=== PATIENT | female | born 1975 | race Caucasian/White ===

== ENCOUNTER 2019-12-04 07:32 | Outpatient (CLI) | payer OTHER, SELFPAY ==
--- NOTE | ~2019-12-04 | US_ITS ---
EXAMINATION: US right upper quadrant DATE: 12/04/2019 08:01 INDICATION: Right upper quadrant pain TECHNIQUE: Multiple grayscale and Doppler ultrasound images of the abdomen were obtained. COMPARISON: None available FINDINGS: The head and and body of the pancreas are normal. The pancreatic tail is obscured by bowel gas. The liver demonstrates increased echogenicity, heterogenous echotexture, and decreased through t ransmission. No surface nodularity. Normal hepatopetal flow in the main portal vein. There is a small amount of sludge in the gallbladder. No pericholecystic fluid or gallbladder wall thickening are satinder ntified. The normal common bile duct measures 3 mm. There was no sonographic Laughlin sign. IMPRESSION: 1. Diffuse hepatic steatosis. 2. Small amount of gallbladder sludge. Reviewed, dictated and finalized at location A.
== END 2019-12-04 07:33 | disposition home or self-care (01) ==
LOC: CHSIMG 07:35
PROVIDERS: PCP Internal Medicine; Visit Provider Internal Medicine
DX: R94.5 Abnormal results of liver function studies (principal)
CPT/HCPCS: 76705

== ENCOUNTER 2020-02-01 07:32 | Outpatient (RCR) | payer OTHER, SELFPAY ==
--- NOTE | 2020-02-01 07:48 | PTOPEVAL ---
Thank you for referring Paradise Gifford to [facility].? The patient is scheduled to be seen for therapy? __2__x/week for 8 visits. Please review, sign, date and return this plan of care SELENA. I agree with and certify that the following plan of care is medically necessary. Referring Physician Date Admitting Provider: Attending Provider: PHYSICIAN NOT ON STAFF Referring Provider: *PT Outpatient Evaluation Start: 02/01/20 06:58 Freq: Status: Active Protocol: Document 02/01/20 06:59 RACHEL (Rec: 02/01/20 07:44 RACHEL [email or web address]) Therapy Assessment Status Assessment Status Assessment Status Evaluation Evaluation Information Problem Diagnosis rotator cuff syndrome right shoulder Onset 11/14/19 Subjective Information Pt. reports that around the Query Text:As Reported By Patient/ beginning of November she did a Family lot of house cleaning and developed right shoulder pain. She reports that she has improved since then, but states that reaching overhead to reach in cabinets is painful. She notes that she does get pain with sleeping on her right shoulder. She describes pain in the posterior shoulder and radiating into the described brachial region. She reports that her goal is to decrease her shoulder pain. Diagnostic Tests X-Rays For This Problem Yes Prior Level of Function Activity Level (Last 3 Months) Occupation keyboarding Hand Dominance Right Activity of Daily Living Ability Independent Indoor/Home Mobility Independent Community Mobility Independent Stairs Ability Independent Functional Cognition (Planning, Shopping Independent , Taking Medications) Cooking Yes Cleaning Yes Laundry Yes Shopping Yes Driving Yes Pain Assessment Pain Scale Pain Scale Used Numeric (1 - 10) Self Report Pain Assessment Right Shoulder(s) Reported Pain Level 0 Pain Description Aching Pain Frequency Intermittent Lowest Pain Intensity 0 Greatest Pain Intensity 2 Pain Score Pain Score 0: Self Report Upper Extremity Range of Motion
== END 2020-02-26 09:15 | disposition home or self-care (01) ==
LOC: CHSPT 07:32
PROVIDERS: PCP Internal Medicine
DX: M75.101 Unspecified rotator cuff tear or rupture of right shoulder, not specified as traumatic (principal)
CPT/HCPCS: 97014; 97110; 97140; 97161; G0283

== ENCOUNTER 2020-12-23 20:23 | Emergency (ER) | payer BC, SELFPAY ==
--- NOTE | ~2020-12-23 | XR_ITS ---
XR foot RT 2V 12/23/2020 21:11 INDICATION: Right foot pain after stepping on nail. PROCEDURE: 2 views right foot COMPARISON: No prior studies for comparison. FINDINGS: Fracture, dislocation or subluxation is not identified. The soft tissues appear within norm al limits. No foreign bodies are identified. IMPRESSION: 1: NO ACUTE BONE OR JOINT ABNORMALITY IDENTIFIED. Reviewed, dictated and finalized at location A.
[2020-12-23 20:53] VITALS: BP 142/88; PULSE 88; RESP 18; TEMP 36.6; O2SAT 95
--- NOTE | 2020-12-23 21:30 | ED.WOUNDLAC ---
HPI - Wound/Laceration General Chief Complaint: Wound/Laceration Stated Complaint: stepped on nail in R foot Time Seen by Provider: 12/23/20 20:55 Source: patient and RN notes reviewed Mode of arrival: ambulatory Limitations: no limitations History of Present Illness HPI narrative: puncture wound to sole of right foot Onset (ago): hour(s) (1) Extremity Location: Left: foot Place: home Patient tetanus UTD: No Context: accidental Associated symptoms: none Related Data Allergies Allergy/AdvReac Type Severity Reaction Status Date / Time cefaclor [From Ceclor] AdvReac Hives Verified 12/23/20 21:05 Review of Systems Review of Systems: All systems reviewed & are unremarkable except as noted in HPI and below Musculoskeletal: Comments: puncture wound to right foot sole. [facility] Past Medical History Medical History (Updated 12/23/20 @ 21:39 by Giancarlo Mauricio MD) Medical history non-contributory Exam Const: General: no acute distress Nutritional Appearance: well nourished Orientation/consciousness: patient oriented x3 HENMT: Head: normal to inspection Ears: external ears normal and TM's normal bilaterally General nose exam: Normal external nose present and Normal nares present Mouth: Yes moist mucous membranes Teeth and gingiva: dentition normal Eyes: Conjunctivae: conjunctivae normal Pupils: Equal, round and reactive pupils present EOM: EOMs intact bilaterally Neck: Neck: normal visual inspection and no lymphadenopathy Chest: Chest palpation & inspection: normal inspection of the chest Resp: Effort & Inspection: normal respiratory effort Auscultation: clear to auscultation bilaterally Cardio: Rate: regular rate Rhythm: regular rhythm GI: GI Palp: Yes Soft to palpation Percussion: Yes normal to percussion Auscultation: normal bowel sounds Back/Spine/Pelvis: Back: no CVA tenderness Skin: General skin exam: normal color Rashes: no rashes Neuro: General: patient oriented x3 and moves all extremities Extrem: Other: Puncture wound of distal 1/3 of right foot sole. no acute bleeding, swelling, deformity, redness or tenderness of distal right foot. Psych: Appearance: grossly normal and well kempt Mental Status: mental status grossly normal Affect: normal affect Attitude: cooperative Thought content: Yes Normal thought content present Course Course Emergency Course: Pt was stable and less pain-ful in the ED. Reevaluation(s) Date: 12/23/20 Time: 21:31 Vital Signs Vital signs: Vital Signs Temperature 36.6 C 12/23/20 20:53 Pulse Rate 88 12/23/20 20:53 Respiratory Rate 18 12/23/20 20:53 Blood Pressure 142/88 H 12/23/20 20:53 Pulse Oximetry 95 12/23/20 20:53 Temperature 36.6 C 12/23/20 20:53 Pulse Rate 88 12/23/20 20:53 Respiratory Rate 18 12/23/20 20:53 Blood Pressure 142/88 H 12/23/20 20:53 Pulse Oximetry 95 12/23/20 20:53 MDM - Wound/Laceration Differential Diagnosis Differential diagnosis: Likely other (puncture wound) Medical Records Attestation: I reviewed the patient's medical records. Imaging Data Radiologist's impression: no acute abnormality. Critical Care Time Critical Care Time Critical Care Time: No Total Critical Care Time: 0 Discharge Plan Discharge Clinical Impression: Puncture wound Patient Disposition: Home, Self-Care Condition: Stable Instructions: Antibiotic Form, Puncture Wound (ED) Additional Instructions: Home. May RTC prn. PMD in 1-2 days. Rx below. RICE. Off work x 2 days. Prescriptions: New levofloxacin 750 mg tablet 750 mg PO DAILY Qty: 10 RF: 0 ibuprofen 800 mg tablet 800 mg PO TID Qty: 20 RF: 0 omeprazole magnesium [Prilosec OTC] 20 mg tablet,delayed release (DR/EC) 20 mg PO BID Qty: 20 RF: 0 Follow-up/Referrals: Edson Olivier MD [Primary Care Provider] - Time of Disposition: 21:35
[2020-12-23] MEDS: TETANUS,DIPHTHERIA,AC PERTUSSIS ADULT 0.5 ML (ADACEL) IM (21:41)
[2020-12-23] MEDS: IBUPROFEN 400 MG TABLET 800 MG PO (21:42)
--- NOTE | 2020-12-23 21:43 | PC.NURSE ---
wound cleaned with betadine upon arrival, vaseline drsg applied.
[2020-12-23 21:44] VITALS: BP 120/90; PULSE 70; RESP 18; TEMP 36.6; O2SAT 100
== END 2020-12-23 21:51 | disposition home or self-care (01) ==
PROVIDERS: Emergency Provider Emergency Medicine; PCP Internal Medicine
DX: S91.331A Puncture wound without foreign body, right foot, initial encounter (principal); W45.0XXA Nail entering through skin, initial encounter
CPT/HCPCS: 73140; 73620; 90471; 90715; 99283; A9270

== ENCOUNTER 2021-10-18 15:01 | Outpatient (CLI) | payer BC, SELFPAY ==
--- NOTE | ~2021-10-18 | CT_ITS ---
EXAMINATION: CT sinus wo con DATE: 10/18/2021 15:24 INDICATION: Chronic sinusitis. TECHNIQUE: Computed tomography (CT) of the paranasal sinuses was performed without intravenous contra st. The dose-length product was 327.26 mGy-cm. COMPARISON: None FINDINGS: There is mild-moderate mucosal thickening of all paranasal sinuses. Leftward nasal septal d eviation. The ostiomeatal units are patent. No significant mucoperiosteal reaction. Mastoids are pneu matized. No air-fluid levels. IMPRESSION: 1. Mild-moderate pansinusitis. Reviewed, dictated and finalized at location A.
== END 2021-10-18 15:02 | disposition home or self-care (01) ==
LOC: CHSIMG 15:02
PROVIDERS: PCP Internal Medicine; Visit Provider Internal Medicine
DX: J32.9 Chronic sinusitis, unspecified (principal)
CPT/HCPCS: 70486

== ENCOUNTER 2021-12-12 12:24 | Outpatient (CLI) | payer BC, SELFPAY ==
--- NOTE | ~2021-12-12 | XR_ITS ---
XR chest 2V DATE: 12/12/2021 12:47 INDICATION: Fever, chills, body aches. Covid exposure. TECHNIQUE: 2 views COMPARISON: 08/15/2015 2 view chest FINDINGS: There is patchy right upper lobe infiltrate. The lungs are otherwise clear. No pleural effu peri or pulmonary vascular congestion or pneumothorax. Normal heart size. No hilar or mediastinal enlargement. IMPRESSION: Patchy right upper lobe infiltrate, likely due to pneumonia Reviewed, dictated and finalized at location B.
[2021-12-12 13:03] LABS: Basophils Absolute Auto 0.01 K/mm3 (0.00-0.10); Basophils Percent Auto 0.1 % (0.0-1.0); Eosinophils Absolute Auto 0.66 K/mm3 (0.02-0.50); Eosinophils Percent Auto 7.8 % (1.0-6.0); Hematocrit 43.7 % (35.0-49.0); Hemoglobin 14.4 g/dL (12.0-15.0); Immature Granulocyte Absolute 0.03 K/mm3 (0.00-0.00); Immature Granulocyte Percent A 0.4 % (0.0-0.0); Lymphocytes Absolute Auto 1.87 K/mm3 (1.10-4.50); Lymphocytes Percent Auto 22.2 % (18.0-42.0); Mean Corpuscular Hemoglobin 29.6 pg (27.0-31.0); Mean Corpuscular Volume 89.7 fL (78.0-102.0); Mean Platelet Volume 9.3 fl (9.2-11.8); Monocytes Absolute Auto 0.78 K/mm3 (0.10-0.90); Monocytes Percent Auto 9.3 % (2.0-11.0); Neutrophils Absolute Auto 5.1 K/mm3 (1.7-7.2); Neutrophils Percent Auto 60.2 % (50.0-70.0); Platelet Count Result 385 K/mm3 (150-420); Red Blood Count 4.87 M/mm3 (4.20-5.40); Red Cell Distribution Width 13.1 % (11.6-14.4); White Blood Count 8.4 K/mm3 (4.8-10.8)
[2021-12-12 13:25] LABS: Alanine Aminotransferase 42 U/L (14-59); Albumin Level 3.5 g/dL (3.4-5.0); Alkaline Phosphatase 88 U/L (46-116); Anion Gap 9 mmol/L (8-16); Aspartate Amino Transferase 14 U/L (15-37); Bilirubin,Total 0.5 mg/dL (0.00-1.00); Blood Urea Nitrogen 7 mg/dL (7-18); Calcium 8.9 mg/dL (8.5-10.1); Carbon Dioxide 28 mmol/L (21-32); Chloride 99 mmol/L (98-108); Estimated Glomerular Filt Rate > 60; Glucose 100 mg/dL (70-99); Osmolality Calculated 280 mOsm/kg (285-295); Sodium 136 mmol/L (136-145); Total Protein 7.1 g/dL (6.4-8.2)
[2021-12-12 13:38] LABS: Influenza A QL RT-PCR Negative (Negative); Influenza B QL RT-PCR Negative (Negative); SARS-CoV-2 RNA PCR Negative (Negative)
== END 2021-12-12 12:25 | disposition home or self-care (01) ==
LOC: CHSIMG 12:29
PROVIDERS: PCP Internal Medicine; Visit Provider Nurse Practitioner Family
DX: R50.9 Fever, unspecified (principal); R52 Pain, unspecified; Z20.822 Contact with and (suspected) exposure to COVID-19
CPT/HCPCS: 36415; 71046; 80053; 85025; 87502; C9803; U0003; U0005

== ENCOUNTER 2021-12-28 17:22 | Outpatient (CLI) | payer BC, SELFPAY ==
--- NOTE | ~2021-12-28 | XR_ITS ---
EXAMINATION: XR chest 2V DATE: 12/28/2021 18:08 INDICATION: Cough. Congestion. TECHNIQUE: Frontal and lateral views of the chest were obtained. COMPARISON: Chest 2 views 12/12/2021 FINDINGS: The chest demonstrates clear lungs without pneumonia, pleural effusion, or pneumothorax. Th e heart size is normal. IMPRESSION: 1. No acute cardiopulmonary disease. Reviewed, dictated and finalized at location A.
[2021-12-28 17:46] LABS: Hematocrit 45.4 % (35.0-49.0); Hemoglobin 14.8 g/dL (12.0-15.0); Mean Corpuscular HGB Conc 32.6 g/dL (32.0-36.0); Mean Corpuscular Hemoglobin 29.5 pg (27.0-31.0); Mean Corpuscular Volume 90.6 fL (78.0-102.0); Mean Platelet Volume 9.3 fl (9.2-11.8); Platelet Count Result 464 K/mm3 (150-420); Red Blood Count 5.01 M/mm3 (4.20-5.40); Red Cell Distribution Width 13.3 % (11.6-14.4); White Blood Count 12.4 K/mm3 (4.8-10.8)
[2021-12-28 18:03] LABS: Alanine Aminotransferase 39 U/L (14-59); Albumin Level 3.6 g/dL (3.4-5.0); Alkaline Phosphatase 80 U/L (46-116); Anion Gap 7 mmol/L (8-16); Aspartate Amino Transferase 14 U/L (15-37); Bilirubin,Total 0.3 mg/dL (0.00-1.00); Blood Urea Nitrogen 10 mg/dL (7-18); Calcium 9.3 mg/dL (8.5-10.1); Carbon Dioxide 30 mmol/L (21-32); Chloride 100 mmol/L (98-108); Estimated Glomerular Filt Rate > 60; Glucose 100 mg/dL (70-99); Osmolality Calculated 283 mOsm/kg (285-295); Potassium 3.6 mmol/L (3.5-5.1); Sodium 137 mmol/L (136-145); Total Protein 6.7 g/dL (6.4-8.2)
== END 2021-12-28 17:23 | disposition home or self-care (01) ==
LOC: CHSLAB 17:28
PROVIDERS: PCP Internal Medicine; Visit Provider Internal Medicine
DX: R05.9 Cough, unspecified (principal)
CPT/HCPCS: 36415; 71046; 80053; 85027

== ENCOUNTER → 2022-01-08 15:25 | Outpatient (CLI) | payer BC, SELFPAY ==
--- NOTE | ~2022-01-08 | CT_ITS ---
EXAMINATION:CT diagnostic chest w con DATE: 01/08/2022 16:02 INDICATION: Pneumonia. TECHNIQUE: Computed tomography (CT) of the chest was performed with 75 mL Omnipaque 350 intravenous c ontrast. Automated exposure control and iterative reconstruction technique were employed. The dose-le ngth product (DLP) was 504.63 mGy-cm. COMPARISON: Chest 2 views 12/28/2021 FINDINGS: The lungs demonstrate mild dependent atelectasis. No bronchiectasis or honeycombing. No ple ural effusion. The heart size is normal. No pericardial effusion. There is diffuse hepatic steatosis. There is mild thoracic spondylosis. Thoracic dextroscoliosis is noted. IMPRESSION: 1. No evidence of pneumonia. 2. Diffuse hepatic steatosis. Reviewed, dictated and finalized at location A.
[2022-01-08 15:51] LABS: Estimated Glomerular Filt Rate > 60
== END ==
PROVIDERS: PCP Internal Medicine; Visit Provider Internal Medicine
DX: J18.9 Pneumonia, unspecified organism (principal); M41.9 Scoliosis, unspecified; K76.0 Fatty (change of) liver, not elsewhere classified
CPT/HCPCS: 71260; Q9967

== ENCOUNTER 2024-08-03 13:21 | Emergency (ER) | payer BC, SELFPAY ==
[2024-08-03 13:21] VITALS: TEMP 36.6
[2024-08-03 13:29] VITALS: BP 162/106; PULSE 86; RESP 18; TEMP 36.5; O2SAT 96
--- NOTE | 2024-08-03 14:21 | ED_ITS ---
HPI - Wound/Laceration General Chief Complaint: Wound/Laceration Stated Complaint: FINGER LAC Time Seen by Provider: 08/03/24 13:50 Source: patient Mode of arrival: ambulatory Limitations: no limitations History of Present Illness HPI narrative: Patient is a 49-year-old female with a significant past medical history that presents today for a laceration to her left 5th digit. There is a laceration to the left 5th digit of the PIP joint. Is a small laceration about 1.5 cm in length. It is not very Deep but so will require stitches. Onset (ago): hour(s) Location: other ( laceration to left 5th digit PIP joint) Extremity Location: Left: hand Place: home Patient tetanus UTD: Yes Context: accidental Associated symptoms: none Related Data Allergies Allergy/AdvReac Type Severity Reaction Status Date / Time cefaclor (From [facility]) AdvReac Hives Verified 08/03/24 13:22 Review of Systems Review of Systems: All systems reviewed & are unremarkable except as noted in HPI and below Constitutional: Constitutional: Reports as per HPI Eyes: Eyes: Reports no additional eye complaints ENT: Reports system reviewed and no additional complaints, except as documented Cardiovascular: Cardiovascular: Reports no additional cardiovascular complaints Respiratory: Respiratory: Reports no additional respiratory complaints Gastrointestinal: Gastrointestinal: Reports no additional gastrointestinal complaints Genitourinary: Genitourinary: Reports no additional female genitourinary complaints Musculoskeletal: Musculoskeletal: Reports as per HPI and Reports arthralgias ( 1.5 cm laceration to left 5th digit PIP joint) Integumentary/Breasts: Skin/Breast: Reports system reviewed and no additional complaints, except as docu Neurologic: Reports system reviewed and no additional complaints, except as documented Psychiatric: Psychiatric: Reports no additional psychiatric complaints Endocrine: Endocrine: Reports no additional endocrine complaints Hematologic/Lymphatic: Hematologic/Lymphatic: Reports no additional hematologic/lymphatic complaints Allergic/Immunologic: Allergic/Immunologic: Reports no additional allergic/immunologic complaints PMFSH Past Medical History Medical History Medical history non-contributory Exam Const: General: healthy appearing Nutritional Appearance: well nourished Orientation/consciousness: patient oriented x3 HENMT: Head: normal to inspection Ears: external ears normal Face/Nos e/Sinus: Normal external nose present Face and sinus: normal facial exam Mouth: Yes Normal oral and palatal mucosa present Eyes: Conjunctivae: conjunctivae normal Pupils: Equal, round and reactive pupils present EOM: EOMs intact bilaterally Neck: Neck: normal visual inspection Chest: Chest palpation & inspection: normal inspection of the chest Resp: Effort & Inspection: normal respiratory effort Auscultation: clear to auscultation bilaterally Cardio: Rate: regular rate Rhythm: regular rhythm GI: GI Palp: Yes Soft to palpation Back/Spine/Pelvis: Back: no CVA tenderness Skin: General skin exam: normal color Rashes: no rashes Wounds: wounds noted ( 1.5 cm laceration to left 5th digit PIP joint) Neuro: General: patient oriented x3 Cranial nerves: Yes Nystagmus not present Speech: normal speech Extrem: General: normal to inspection Psych: Mental Status: mental status grossly normal Affect: normal affect Attitude: cooperative Course Vital Signs Vital signs: Vital Signs Temperature 97.9 F 08/03/24 13:21 Temperature 97.7 F 08/03/24 13:29 Pulse Rate 86 08/03/24 13:29 Respiratory Rate 18 08/03/24 13:29 Blood Pressure 162/106 H 08/03/24 13:29 Pulse Oximetry 96 08/03/24 13:29 Oxygen Delivery Room Air 08/03/24 13:29 Procedures Laceration Laceration 1: Date: 08/03/24 Time: 14:27 Site: hand ( Left 5th digit PIP joint.) Side (If applicable): left Size (cm): 1.5 Description: linear Depth: simple, single layer Local Anesthetic: lidocaine 1% Amount of anesthesia used (mL): 5 Pre-repair: irrigated ====== Skin Level ====== Skin layer closed with: nylon Size (cm): 4-0 Number of sutures: 2 Technique: simple, interrupted ====== Subcutaneous Layer ====== ====== Muscle Layer ====== ====== Tendon Layer ====== MDM - Wound/Laceration MDM Narrative Medical decision making narrative: patient has a 1.5 cm laceration to the 5th digit the left hand PIP joint. This will require stitches. I cleaned the area thoroughly and soaked and iodine monitor. That was able to put 2 stitches and and this is in the procedure although. Differential Diagnosis Differential diagnosis: Likely laceration Medical Records Attestation: I reviewed the patient's medical records. Discharge Plan Discharge Clinical Impression: Laceration, Finger injury Patient Disposition: Home Condition: Stable Instructions: Care For Your Stitches (ED) Additional Instructions: return and 7-10 days to a hair ER, PCP, urgent care for stitch removal. Keep area clean and dry. Wound instructions were given to the patient. Patient Language: Mongolian Prescriptions: No Action levofloxacin 750 mg tablet 750 mg PO DAILY Qty: 10 0RF ibuprofen 800 mg tablet 800 mg PO TID Qty: 20 0RF omeprazole magnesium [Prilosec OTC] 20 mg tablet,delayed release (DR/EC) 20 mg PO BID Qty: 20 0RF Follow-up/Referrals: Edson Olivier MD [Primary Care Provider] - Time of Disposition: 14:29
[2024-08-03 14:39] VITALS: BP 145/82; PULSE 75; RESP 16; TEMP 36.6; O2SAT 99
--- OUTSIDE RECORDS SUMMARY | 2024-08-03 15:00 | XMS_ITS | Clinical Summary ---
Author Organization [facility] [address] Address [address] [place] [address] Care Team Providers Care [facility] Programmer Name Role Phone Edson Olivier MD Primary Care Provider + [phone] Benson Delgado MD Unavailable [phone] Allergies Active Allergy Reactions Criticality Noted Date Comments Cefaclor Hives Medium 11/08/2021 Medications losartan-hydroC HLOROthiazide (HYZAAR) 50-12.5 mg per tablet Take 1 tablet by mouth daily 2 Active cetirizine (ZyrTEC) 10 mg tablet Take 10 mg by mouth nightly Active albuterol 2.5 mg /3 mL (0.083 %) nebulizer solution as needed Active potassium chloride ER 10 mEq CR capsule 10 mEq daily 2 Active fluticasone propionate (FLOVENT HFA) 220 mcg/actuation inhaler Inhale 1 puff 2 (two) times a day Rinse mouth with water after use. Do not swallow. Active [id number] 600 mg calcium- 800 unit-50 mg tablet Take 1 tablet by mouth daily Active magnesium gluconate (MAGONATE) 500 mg (27 mg elemental) tabletIndicatio ns:hypomagnesem ia Take 500 mg by mouth daily Active turmeric root extract 500 mg capsule Take 500 mg by mouth daily Active levalbuterol (XOPENEX HFA) 45 mcg/actuation inhaler INHALE 2 PUFFS (90 MCG) BY INHALATION ROUTE EVERY 4-6 HOURS 2 Active HYDROcodone-beatrice taminophen (NORCO) 7.5-325 mg per tabletIndicatio ns:Pain Take 1 tablet by mouth every 6 (six) hours as needed for pain for up to 24 doses 24 tablet 2 Active Active Problems Problem Noted Date Diagnosed Date Hypertrophy of nasal turbinates 01/30/2022 Overview (01/30/2022): Added automatically from request for surgery [id number] Tinnitus of both ears 11/09/2021 Assessment & Plan (11/09/2021 8:26 PM CDT): We talked about the tinnitus. I think is related to the high-frequency sensorineural hearing loss that she has in both ears. I do not think she is a candidate for hearing aids. He basically reassured her. There is really not a whole lot that can be done for this. She understands. Nasal obstruction 11/08/2021 Assessment & Plan (11/09/2021 8:26 PM CDT): Is likely due to the deviated nasal septum and enlarged turbinates. I also think that she has mild chronic sinusitis which is contributing. Deviated nasal septum 11/08/2021 Assessment & Plan (12/26/2021 7:31 PM CDT): Again I think she would benefit from a septoplasty with bilateral inferior turbinectomy. She also would like to pursue this. She would like to breathe through her nose quite a bit better. I discussed the risk of a septoplasty with and without turbinectomy with the patient. There is a risk of continued nasal obstruction, bleeding, septal perforation, permanent anosmia. Also risk of inadequate correction which could result in continued nasal obstruction symptoms. She wants to pursue this. She will call to set that up. Assessment & Plan (11/09/2021 8:27 PM CDT): We talked about the deviated nasal septum. I told her there is really not a whole lot that can be done for that other than surgery to correct this. I discussed the risk of a septoplasty with and without turbinectomy with the patient. There is a risk of continued nasal obstruction, bleeding, septal perforation, permanent anosmia. Also risk of inadequate correction which could result in continued nasal obstruction symptoms. I am going to treat her for her sinusitis and the plan is to see her back in about 4 weeks to see how she is doing. If she has continued symptoms I may be recommending surgery at that time. She understands. Chronic pansinusitis 11/08/2021 Assessment & Plan (03/31/2022 2:00 PM CANDY COOKER HELPER): She is healing well. Packing was removed today and I removed old blood and debris from each side of the nose using suction. She noted that she could breathe quite a bit better. I am recommending that she avoid anything strenuous. Keep her head up as much as possible over the next couple of days. She can start blowing her nose and a couple of days. The plan is for a follow-up in 1 week. Assessment & Plan (12/26/2021 7:30 PM CDT): I am recommending surgery to address her sinus problems. I discussed the risk of sinus surgery including the risk of recurrent or persistent disease that may require further revision surgery. There is a risk of orbital injury and DISPATCHER [employer] POWER injury which could result in blindness or double vision or brain damage. These risks are quite low. Some risk of permanent anosmia. She indicated she wants good pursue this. She is going to go ahead and get her chest CT scan done 1st however and if everything seems to be okay she will call us set this up. Assessment & Plan (11/09/2021 8:28 PM CDT): She has mild disease but is significant and there is significant sinus obstruction with this. I reviewed this with her films. Has involvement of the ethmoid maxillary sinuses. May need to consider surgery for that also. She understands. I am going to treat her for 2 weeks with Augmentin. Also a steroid pack. Follow- up after that. Surgical History Surgery Date Site/Laterality Comments TONSILLECTOMY 04/15/1982 - 04/14/1983 N/A FINGER SURGERY 04/15/2004 - 04/14/2005 Left Left ring finger EYE SURGERY 04/15/2017 - 04/14/2018 cataracts SINUS SURGERY 03/26/2022 Bilateral ENDOSCOPIC BILATERAL MAXILLLARY ANTROSTOMY,BILATERAL TOTAL ETHMOIDECTOMY NASAL SEPTOPLASTY W/ TURBINOPLASTY 03/26/2022 Bilateral Medical History Medical History Date Comments Allergic rhinitis Asthma Glaucoma Hypertension GERD (gastroesophageal reflux disease) Sinusitis HL (hearing loss) Tinnitus Dizziness Covid 04/2021 Motion sickness Heart murmur no symptoms Cough Pneumonia 01/2022 Obesity Family History Medical History Relation Name Comments Gifford's esophagus Mother Thyroid disease Mother Relation Name Status Comments Mother Social History Tobacco Use Types Packs/Day Years Used Date Smoking Tobacco: Never Smokeless Tobacco: Never Tobacco Cessation:Counseling Given: Not Answered AUDIT-C Answer Date Recorded Q1: How often do you have a drink containing alcohol? Never 03/26/2022 Q2: How many drinks containi ng alcohol do you have on a typical day when you are drinking? Patient does not drink Q3: How often do you have si x or more drinks on one occasion? Never 03/26/2022 Comments No Sex and Gender Information Value Date Recorded Sex Assigned at Not on file Legal Sex Female 2:23 PM CDT Gender Identity Not on file Sexual Orientation Not on file Obstetrics History Last Filed Vital Signs Vital Sign Reading Time Taken Comments Blood Pressure 143/96 03/26/2022 2:05 PM CANDY COOKER HELPER Pulse 71 03/26/2022 2:05 PM CANDY COOKER HELPER Temperature 36.4 C (97.5 F) 03/26/2022 1:35 PM CANDY COOKER HELPER Respiratory Rate 18 03/27/2022 11:16 AM CANDY COOKER HELPER Oxygen Saturation 96% 03/26/2022 2:05 PM CANDY COOKER HELPER Inhaled Oxygen Concentration - - Weight 93.9 kg (207 lb) 03/27/2022 11:16 AM CANDY COOKER HELPER Height 157.5 cm (5' 2 ) 03/27/2022 11:16 AM CANDY COOKER HELPER Body Mass Index 37.86 03/27/2022 11:16 AM CANDY COOKER HELPER Plan of Treatment Health Maintenance Due Date Last Done Comments Breast Cancer Screening-Mammogram 1974 Cervical Cancer Screening 1974 Colon Cancer Screening-Colonoscopy 1974 Depression Screening 1974 Hepatitis C Screening 1974 Hepatitis B Screening 1992 Regular Well Visit/Exam 18-64 1992 Covid-19 Vaccine ( season) 2023, 08/17/2020 Influenza Vaccine (#1) 2023 Pneumococcal vaccine <65 (3 of 3 - PCV20 or PCV21) 2024 07/16/2017, 08/17/2016 Zoster Vaccine (1 of 2) 2024 DTaP/Tdap/Td Vaccine (3 - Td or Tdap) 12/23/203001/2021, 08/17/2016 Insurance [employer] O[employer] Advance Directives For more information, please contact: [phone] * Full Code (Latest Code Status on File) Date Activated Date Inactivated Comments 03/26/2022 2:00 PM 03/26/2022 6:48 PM Care Teams [facility] Programmer Relationship Specialty Start Date End Date Edson Olivier MD [address] [place] [address] PCP - General Internal Medicine 10/25/21 Benson Delgado [place] [address] Consulting Physician Otolaryngology 03/26/22
--- OUTSIDE RECORDS SUMMARY | 2024-08-03 15:00 | XMS_ITS | Clinical Summary ---
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 Gender Identity Not on file Sexual Orientation Not on file Plan of Treatment Health Maintenance Due Date Last Done Comments Colorectal Cancer Screening Colonoscopy (10 Years) 1974 Annual Physical 1977 Hepatitis C 1992 Hepatitis B Vaccines (1 of 3 - 19+ 3-dose series) 1993 COVID-19 Vaccine (2023-2 5 season) 2023 09/07/2020, 08/17/2020 Pneumococcal Vaccine: 50+ Years (3 of 3 - PCV20 or PCV21) 2024 07/16/2017, 08/17/2016 Zoster Vaccines (1 of 2) 2024 Mammogram Screening 10/12/2024 10/12/2022, 06/28/2021 Cervical Cancer Screening Pa p Smear (Age 30 to 64) Every 3 Years 09/14/2025 09/14/2022 Cervical Cancer Screening Pa p with HPV Testing (Age 30 to 64) Every 5 Years 09/15/2027 09/14/2022 Cervical Cancer Screening wi th HPV 09/15/2027 DTaP, Tdap and Td Vaccines ( 3 - Td or Tdap) 12/23/2030 12/23/2020, 08/17/2016 Meningococcal B Vaccine Aged Out No l onger eligible based on patient's age to complete this topic Meningococcal Vaccine Aged Out No jose angel eva eligible based on patient's age to complete this topic RSV Immunizations Under 20 Months Aged Out No longer eligible b ased on patient's age to complete this topic Procedures Procedure Name Priority Date/Time Associated Diagnosis Comments MG SCREENING W NOA SCHUYLER DIGI Routine 10/12/2022 2:25 PM CDT Visit for screening mammogram HUMAN PAPILLOMAVIRUS, HIGH-RISK TYPES Routine 09/14/2022 12:00 PM CDT CYTOPATH CERV/VAG THIN LAYER Routine 09/14/2022 7:48 AM CDT Screening for cervical cancer from Last 3 Months or Most Recently Relevant to Health Maintenance Results * MG SCREENING W NOA SCHUYLER DIGI (10/12/2022 2:25 PM CDT) Anatomical Region Laterality Modality Breast Bilateral Mammography 10/15/2022 1:32 PM CDT Narrative 10/15/2022 1:32 PM CDT EXAMINATION: BILATERAL SCREENING MAMMOGRAPHY Exam Date: 10/12/2022 1:58 PM CLINICAL INDICATION: 47 years of age female routine screening. COMPARISON: Dating back to 11/18/2013 TECHNIQUE: Digital CC & MLO views. Tomosynthesis imaging acquisition Study read with the assistance of a computer-aided detection system. TISSUE DENSITY: There are scattered areas of fibroglandular density. FINDINGS: No suspicious grouping of microcalcifications, architectural distortion, or new dominant suspicious nodule 3 dimensionally demonstrated in either breast. IMPRESSION: No interval features to suggest malignancy. In the absence of clinical symptoms, return for annual screening mammogram due in 1 year. RECOMMENDATION: Routine Screening, Bilateral in 1 year ASSESSMENT: ACR BI-RADS 1 - NEGATIVE Ordered By: GEOVANI E JOSIAH Interpreted By: Devin Augustin MD, 10/15/2022 1:32 PM Geovani Hoffmann MD MAMMO Final Result * HUMAN PAPILLOMAVIRUS, HIGH-RISK TYPES (09/14/2022 12:00 PM CDT) SPEC DESCRIPTION CERVICAL/END OCERVICAL 09/18/2022 7:58 AM CDT [facility] HPV DNA HIGH RISK NEGATIVE NEGATIVE 09/21/2022 9:52 PM CDT [facility] Comment:SEE CYTOLOGY REPORT 09/14/2022 12:0 0 PM CDT Geovani Hoffmann MD PATHOLOGY/CYTOLOGY ORDERABLES Final Result [facility] [address] [place] [address], * Cytopath Cerv/Vag Thin Layer (09/14/2022 7:48 AM CDT) THIN PREP PAP [facility] [address] [place] [address] Department of Pathology Pathology Report CERVICAL/VAGINAL PAP SMEAR REPORT Name: PARADISE BISWAS Age: 3 1975 (Age: 47) Location: [facility] Sex: F Collected Date: 09/14/2022 Hospital #: [id number] Date Received: 09/18/2022 Date Reported: 09/24/2022 Provider: GEOVANI HERNANDES MD INTERPRETATION CERVICAL/ENDOCERVI ZACH: SATISFACTORY FOR EVALUATION. ENDOCERVICAL/TRANS FORMATION ZONE COMPONENT PRESENT. NEGATIVE FOR INTRAEPITHELIAL LESION OR MALIGNANCY. NEGATIVE FOR HIGH RISK HPV. The FDA approved Aptima HPV assay is an in vitro nucleic acid amplification test for the qualitative detection of E6/E7 viral messenger RNA (mRNA) from 14 high-risk types of human papillomavirus (HPV) in cervical specimens. The high-risk HPV types detected by the assay include: 16,18,31,33,35,39, 45,51,52,56,58,59, 66, and 68. Electronically Signed Out By SHEILA Lyle (ASCP) CLINICAL HISTORY SCREENING PAP TEST ThinPrep Pap Test with screening HR HPV testing requested, with reflex HPV 16/18 genotyping on negative cytology, positive HR HPV Date of Last Menstrual Period: UNKNOWN Menstrual Status: Regular SPECIMEN SUBMITTED CERVICAL/ENDOCERVI ZACH Specimen Received:1 Thin Prep Vial, Image Assisted Pap (SMD) Please note: The Pap smear is not a diagnostic test. It is a screening test. Negative results on combined screening (Pap test and HPV-DNA) have a high negative predictive value (99.1-100 percent) for cervical cancer. The pap test is not effective in detecting cervical adenocarcinoma. [facility] 09/14/2022 7:48 AM CDT 09/18/2022 7:48 AM CDT Comment:CERVICAL/ENDOCERVICA L Geovani Hoffmann MD PATHOLOGY/CYTOLOGY ORDERABLES Final Result [facility] [address] [place] [address], from Last 3 Months or Most Recently Relevant to Health Maintenance Insurance [facility] Care Teams Manager Rn Case Relationship Specialty Start Date End Date Edson Hernandes MD [address] [place] [address] PCP - General INTERNAL MEDICINE 06/23/21
--- OUTSIDE RECORDS SUMMARY | 2024-08-03 15:00 | XMS_ITS | Referral Summary ---
Author Organization [facility] [address] [employer] Address [address] [place] [address] Care Team Providers Care Paint Process Engineer Name Role Phone Edson Olivier MD Primary Care Provider + [phone] Benson Delgado MD Unavailable [phone] Allergies Active Allergy Reactions Criticality Noted Date [...] water after use. Do not swallow. Active [id number]-zi jd-ipg-qpmv-bor 600 mg calcium- 800 unit-50 mg tablet [...] (01/30/2022): Added automatically from request for surgery [id number] Tinnitus of both ears 11/09/2021 Assessment & [...] 11/08/2021 Assessment & Plan (03/31/2022 2:00 PM PLANOGRAPH OPERATOR): She is healing well. Packing was removed [...] is a risk of orbital injury and IT SOLUTIONS ARCHITECT injury which could result in blindness or [...] a steroid pack. Follow- up after that. Social History Tobacco Use Types Packs/Day Years [...] on file Sexual Orientation Not on file Last Filed Vital Signs Vital Sign Reading Time Taken Comments Blood Pressure 143/96 03/26/2022 2:05 PM PLANOGRAPH OPERATOR Pulse 71 03/26/2022 2:05 PM PLANOGRAPH OPERATOR Temperature 36.4 C (97.5 F) 03/26/2022 1:35 PM PLANOGRAPH OPERATOR Respiratory Rate 18 03/27/2022 11:16 AM PLANOGRAPH OPERATOR Oxygen Saturation 96% 03/26/2022 2:05 PM PLANOGRAPH OPERATOR Inhaled Oxygen Concentration - - Weight 93.9 kg (207 lb) 03/27/2022 11:16 AM PLANOGRAPH OPERATOR Height 157.5 cm (5' 2 ) 03/27/2022 11:16 AM PLANOGRAPH OPERATOR Body Mass Index 37.86 03/27/2022 11:16 AM PLANOGRAPH OPERATOR Plan of Treatment Not on file Insurance [employer] Advance Directives For more information, please contact: [phone] * Full Code (Latest Code Status on File) Date Activated Date Inactivated Comments 03/26/2022 2:00 PM 03/26/2022 6:48 PM Care Teams Paint Process Engineer Relationship Specialty Start Date End Date Edson Olivier MD [address] [place] [address] PCP - General Internal Medicine 10/25/21 Benson Delgado MD [address] [place] [address] Consulting Physician Otolaryngology 03/26/22
--- OUTSIDE RECORDS SUMMARY | 2024-08-03 15:50 | XMS_ITS | Clinical Summary ---
Author Organization [facility] [address] [employer] Address [address] [place] [address] Care Team Providers Care Vehicle Controls Engineer Name Role Phone Edson Olivier MD Primary Care Provider + [phone] Benson Delgado MD Unavailable [phone] Allergies Active Allergy Reactions Criticality Noted Date [...] water after use. Do not swallow. Active [id number]-zi tx-idc-icou-bor 600 mg calcium- 800 unit-50 mg tablet [...] (01/30/2022): Added automatically from request for surgery [id number] Tinnitus of both ears 11/09/2021 Assessment & [...] 11/08/2021 Assessment & Plan (03/31/2022 2:00 PM CLINICAL RECRUITER): She is healing well. Packing was removed [...] is a risk of orbital injury and DRIVER GUIDE injury which could result in blindness or [...] Comments Blood Pressure 143/96 03/26/2022 2:05 PM CLINICAL RECRUITER Pulse 71 03/26/2022 2:05 PM CLINICAL RECRUITER Temperature 36.4 C (97.5 F) 03/26/2022 1:35 PM CLINICAL RECRUITER Respiratory Rate 18 03/27/2022 11:16 AM CLINICAL RECRUITER Oxygen Saturation 96% 03/26/2022 2:05 PM CLINICAL RECRUITER Inhaled Oxygen Concentration - - Weight 93.9 kg (207 lb) 03/27/2022 11:16 AM CLINICAL RECRUITER Height 157.5 cm (5' 2 ) 03/27/2022 11:16 AM CLINICAL RECRUITER Body Mass Index 37.86 03/27/2022 11:16 AM CLINICAL RECRUITER Plan of Treatment Health Maintenance Due Date [...] - Td or Tdap) 12/23/203001/2021, 08/17/2016 Insurance [employer] Advance Directives For more information, please contact: [phone] * Full Code (Latest Code Status on File) Date Activated Date Inactivated Comments 03/26/2022 2:00 PM 03/26/2022 6:48 PM Care Teams Vehicle Controls Engineer Relationship Specialty Start Date End Date Edson Olivier MD [address] [place] [address] PCP - General Internal Medicine 10/25/21 Benson [place] [address] Consulting Physician Otolaryngology 03/26/22
--- OUTSIDE RECORDS SUMMARY | 2024-08-03 15:50 | XMS_ITS | Referral Summary ---
Author Organization [facility] [address] Address [address] [place] [address] Care Team Providers Care Communication Equipment Mechanic Name Role Phone Edson Olivier MD Primary Care Provider + [phone] Benson Delgado MD Unavailable [phone] Allergies Active Allergy Reactions Criticality Noted Date [...] water after use. Do not swallow. Active [id number]-[id number]-zi lb-ovu-nkne-bor 600 mg calcium- 800 unit-50 mg tablet [...] (01/30/2022): Added automatically from request for surgery [id number] Tinnitus of both ears 11/09/2021 Assessment & [...] 11/08/2021 Assessment & Plan (03/31/2022 2:00 PM MARKETING STRATEGIST): She is healing well. Packing was removed [...] is a risk of orbital injury and BOAT JOINER HELPER injury which could result in blindness or [...] Comments Blood Pressure 143/96 03/26/2022 2:05 PM MARKETING STRATEGIST Pulse 71 03/26/2022 2:05 PM MARKETING STRATEGIST Temperature 36.4 C (97.5 F) 03/26/2022 1:35 PM MARKETING STRATEGIST Respiratory Rate 18 03/27/2022 11:16 AM MARKETING STRATEGIST Oxygen Saturation 96% 03/26/2022 2:05 PM MARKETING STRATEGIST Inhaled Oxygen Concentration - - Weight 93.9 kg (207 lb) 03/27/2022 11:16 AM MARKETING STRATEGIST Height 157.5 cm (5' 2 ) 03/27/2022 11:16 AM MARKETING STRATEGIST Body Mass Index 37.86 03/27/2022 11:16 AM MARKETING STRATEGIST Plan of Treatment Not on file Insurance [employer] Advance Directives For more information, please contact: [phone] * Full Code (Latest Code Status on File) Date Activated Date Inactivated Comments 03/26/2022 2:00 PM 03/26/2022 6:48 PM Care Teams Communication Equipment Mechanic Relationship Specialty Start Date End Date Edson Olivier MD [address] [place] [address] PCP - General Internal Medicine 10/25/21 Benson Delgado MD [address] [place] [address] Consulting Physician Otolaryngology 03/26/22
--- OUTSIDE RECORDS SUMMARY | 2024-08-03 15:50 | XMS_ITS | Clinical Summary ---
Author Organization [facility] Address [address] [place] [address] Care Team Providers Care Manager Licensing Name Role Phone Edson Hernandes MD Primary Care Provider [phone] Family History Medical History Relation Comments Breast Cancer Maternal Aunt Breast Cancer Paternal Grandmother Relation Status Comments Maternal Aunt Paternal Grandmother Social History Tobacco Use Types Packs/Day Years Used Date Smoking Tobacco: Never Assessed Comments Unknown Sex and Gender Information Value Date Recorded Sex Assigned at Not on file Legal Sex Female 6:36 PM DIRECTOR MUSIC Gender Identity Not on file Sexual Orientation [...] DESCRIPTION CERVICAL/END OCERVICAL 09/18/2022 7:58 AM CDT [facility] HPV DNA HIGH RISK NEGATIVE NEGATIVE 09/21/2022 9:52 PM CDT [facility] Comment:SEE CYTOLOGY REPORT 09/14/2022 12:0 0 PM CDT Geovani Hoffmann MD PATHOLOGY/CYTOLOGY ORDERABLES Final Result [facility] [address] [place] [address], * Cytopath Cerv/Vag Thin Layer (09/14/2022 7:48 AM CDT) THIN PREP PAP [facility] [address] [place] [address] Department of Pathology Pathology Report CERVICAL/VAGINAL PAP SMEAR REPORT Name: PARADISE BISWAS Age: 3 1975 (Age: 47) Location: [facility] Sex: F Collected Date: 09/14/2022 Hospital #: [id number] Date Received: 09/18/2022 Date Reported: 09/24/2022 Provider: [...] is not effective in detecting cervical adenocarcinoma. [facility] 09/14/2022 7:48 AM CDT 09/18/2022 7:48 AM CDT Comment:CERVICAL/ENDOCERVICA L Geovani Hoffmann MD PATHOLOGY/CYTOLOGY ORDERABLES Final Result [facility] [address] [place] [address], from Last 3 Months or Most Recently Relevant to Health Maintenance Insurance [employer] Care Teams Manager Licensing Relationship Specialty Start Date End Date Edson Hernandes MD [address] [place] [address] PCP - General INTERNAL MEDICINE 06/23/21
== END 2024-08-03 14:39 | disposition home or self-care (01) ==
PROVIDERS: Emergency Provider Family Medicine; PCP Internal Medicine
DX: S61.217A Laceration without foreign body of left little finger without damage to nail, initial encounter (principal); W45.8XXA Other foreign body or object entering through skin, initial encounter
CPT/HCPCS: 12001; 99282

== ENCOUNTER 2025-01-25 14:28 | Outpatient (CLI) | payer BC, SELFPAY ==
--- NOTE | ~2025-01-25 | XR_ITS ---
EXAMINATION: XR foot RT min 3V, 01/25/2025 14:45 CDT HISTORY: R Knee Pain, R Foot Pain COMPARISON: No comparisons available. Findings: No acute fracture or malalignment. No significant degenerative changes. Soft tissues unremarkable. Impression: No acute fracture or malalignment. Reviewed, dictated and finalized at location P. Impression: No acute fracture or malalignment.
--- NOTE | ~2025-01-25 | XR_ITS ---
EXAMINATION: XR knee RT 3V, 01/25/2025 14:45 CDT HISTORY: R Knee Pain COMPARISON: No comparisons available. Findings: No acute fracture or malalignment. No significant degenerative changes. Soft tissues unremarkable. Impression: No acute fracture or malalignment. Reviewed, dictated and finalized at location P. Impression: No acute fracture or malalignment.
--- OUTSIDE RECORDS SUMMARY | 2025-01-25 15:34 | XMS_ITS | Clinical Summary ---
Author Organization [facility] [address] Address [address] [place] [address] Care Team Providers Care Systems Analyst Developer Name Role Phone Edson Olivier MD Primary Care Provider [phone] Benson Delgado MD Unavailable [phone] Allergies Active Allergy Reactions Criticality Noted Date [...] water after use. Do not swallow. Active [id number]-[id number]-zi iy-odl-ptwq-bor 600 mg calcium- 800 unit-50 mg tablet [...] (01/30/2022): Added automatically from request for surgery [id number] Tinnitus of both ears 11/09/2021 Assessment & [...] 11/08/2021 Assessment & Plan (03/31/2022 2:00 PM TOWN PLANNER): She is healing well. Packing was removed [...] is a risk of orbital injury and CLINICAL SECRETARY injury which could result in blindness or [...] Comments Blood Pressure 143/96 03/26/2022 2:05 PM TOWN PLANNER Pulse 71 03/26/2022 2:05 PM TOWN PLANNER Temperature 36.4 C (97.5 F) 03/26/2022 1:35 PM TOWN PLANNER Respiratory Rate 18 03/27/2022 11:16 AM TOWN PLANNER Oxygen Saturation 96% 03/26/2022 2:05 PM TOWN PLANNER Inhaled Oxygen Concentration - - Weight 93.9 kg (207 lb) 03/27/2022 11:16 AM TOWN PLANNER Height 157.5 cm (5' 2) 03/27/2022 11:16 AM TOWN PLANNER Body Mass Index 37.86 03/27/2022 11:16 AM TOWN PLANNER Plan of Treatment Health Maintenance Due Date Last Done Comments Breast Cancer Screening-Mammogram 1974 Cervical Cancer Screening 1974 Colon Cancer Screening-Colonoscopy 1974 Depression Screening 1974 Hepatitis C Screening 1974 Hepatitis B Screening 1992 Regular Well Visit/Exam 18-64 1992 Pneumococcal vaccine <65 (3 of 3 - PCV20 or PCV21) 2024 07/16/2017, 08/17/2016 Zoster Vaccine (1 of 2) 2024 Covid-19 Vaccine (3 - 2024- season) 2024, 08/17/2020 Influenza Vaccine (#1) 2024 DTaP/Tdap/Td Vaccine (3 - Td or Tdap) 12/23/203001/2021, 08/17/2016 Insurance [employer] Advance Directives For more information, please contact: [phone] * Full Code (Latest Code Status on File) Date Activated Date Inactivated Comments 03/26/2022 2:00 PM 03/26/2022 6:48 PM Care Teams Systems Analyst Developer Relationship Specialty Start Date End Date Edson Olivier MD [address] [place] [address] PCP - General Internal Medicine 10/25/21 [place] [address] [place] [address] Consulting Physician Otolaryngology 03/26/22
--- OUTSIDE RECORDS SUMMARY | 2025-01-25 15:34 | XMS_ITS | Clinical Summary ---
Author Organization [facility] Address [address] [place] [address] Care Team Providers Care Pneumatic Drum Sander Name Role Phone Edson Hernandes MD Primary Care Provider [phone] Family History Medical History Relation Comments Breast Cancer Maternal Aunt Breast Cancer Paternal Grandmother Relation Status Comments Maternal Aunt Paternal Grandmother Social History Tobacco Use Types Packs/Day Years Used Date Smoking Tobacco: Never Assessed Comments Unknown Sex and Gender Information Value Date Recorded Sex Assigned at Not on file Legal Sex Female 6:36 PM NUCLEAR MEDICINE TECHNOLOGIST Gender Identity Not on file Sexual Orientation Not on file Plan of Treatment Health Maintenance Due Date Last Done Comments Colorectal Cancer Screening Colonoscopy (10 Years) 1974 Annual Physical 1977 Hepatitis C 1992 Hepatitis B Vaccines (1 of 3 - 19+ 3-dose series) 1993 Pneumococcal Vaccine: 50+ Years (3 of 3 - PCV20 or PCV21) 2024 07/16/2017, 08/17/2016 Zoster Vaccines (1 of 2) 2024 Mammogram Screening 10/12/2024 10/12/2022, 06/28/2021 COVID-19 Vaccine (2024-2 6 season) 2024 09/07/2020, 08/17/2020 Influenza Adult (#1) 2025 Cervical Cancer Screening Pa p Smear (Age [...] BI-RADS 1 - NEGATIVE Ordered By: GEOVANI HOFFMANN Interpreted By: Devin Augustin MD, 10/15/2022 1:32 PM Geovani Hoffmann MD MAMMO Final Result * HUMAN PAPILLOMAVIRUS, HIGH-RISK TYPES (09/14/2022 12:00 PM CDT) SPEC DESCRIPTION CERVICAL/END OCERVICAL 09/18/2022 7:58 AM CDT [facility] HPV DNA HIGH RISK NEGATIVE NEGATIVE 09/21/2022 9:52 PM CDT [facility] Comment:SEE CYTOLOGY REPORT 09/14/2022 12:0 0 PM CDT Geovani Hoffmann MD PATHOLOGY/CYTOLOGY ORDERABLES Final Result [facility] [address] [place] [address], * Cytopath Cerv/Vag Thin Layer (09/14/2022 7:48 AM CDT) THIN PREP PAP [facility] [address] [place] [address] Department of Pathology Pathology Report CERVICAL/VAGINAL PAP SMEAR REPORT Name: PARADISE BISWAS Age: 3 1975 (Age: 47) Location: [facility] Sex: F Collected Date: 09/14/2022 [facility] #: [id number] Date Received: 09/18/2022 Date Reported: 09/24/2022 Provider: [...] is not effective in detecting cervical adenocarcinoma. [facility] 09/14/2022 7:48 AM CDT 09/18/2022 7:48 AM CDT Comment:CERVICAL/ENDOCERVICA L Geovani Hoffmann MD PATHOLOGY/CYTOLOGY ORDERABLES Final Result [facility] [address] [place] [address], from Last 3 Months or Most Recently Relevant to Health Maintenance Insurance [facility] Care Teams Pneumatic Drum Sander Relationship Specialty Start Date End Date Edson Hernandes MD [address] [place] [address] PCP - General INTERNAL MEDICINE 06/23/21
== END 2025-01-25 14:29 | disposition home or self-care (01) ==
PROVIDERS: PCP Internal Medicine; Visit Provider Internal Medicine
DX: M25.561 Pain in right knee (principal); M79.671 Pain in right foot
CPT/HCPCS: 73562; 73630

== ENCOUNTER 2025-04-03 07:46 | Outpatient (CLI) | payer BC, SELFPAY ==
--- NOTE | ~2025-04-03 | MR_ITS ---
EXAMINATION: MR knee RT wo/w con DATE: 04/03/2025 08:37 INDICATION: Right knee pain TECHNIQUE: Magnetic resonance imaging (MRI) of the right knee was performed without and with 20 mL Multihance intravenous contrast. Sequences included coronal PD-weighted FSE, coronal PD-weighted FS FSE, sagittal T2-weighted FSE, sagittal PD-weighted FS FSE, axial PD weighted fat saturated FSE, axial T1- weighted FS FSE and postcontrast axial, sagittal and coronal T1-weighted FS FSE. COMPARISON: None. FINDINGS: Medial compartment: There is a radial tear near the posterior root of the medial meniscus. There is mild reactive marrow edema and enhancement post lateral aspect medial tibial plateau near the root of the medial meniscus and likely secondary to the meniscal tear. Partial-thickness chondral fissuring involving at least 50% of the cartilage thickness along the lateral margin of the anterior weightbearing medial femoral condyle. Lateral compartment: Lateral meniscus is normal. Articular cartilage is normal. Patellofemoral compartment: Deep chondral ulceration with mild underlying edema-like signal and enhancement at the junction of the cephalad two thirds of the patellar apical ridge. Shallow chondral surface irregularity along portions of the lateral patellar facet. Trochlear cartilage is normal. Ligaments and tendons: Anterior and posterior cruciate ligaments are normal. The medial collateral ligament and fibular collateral ligament complex are normal. Patellar tendon is normal. Mild tendinopathy at the distal quadriceps tendon without discrete tear. The visualized medial and lateral hamstring tendons as well as the iliotibial band are normal. Fluid: Small knee joint effusion at the suprapatellar pouch. No loose osteochondral bodies identified. Osseous/other: No fracture or pathologic marrow replacing process. IMPRESSION: 1. Radial meniscal tear near the posterior root of the medial meniscus. 2. 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 2. Likely reactive small right knee joint effusion. Reviewed, dictated and finalized at location A. [facility] IMPRESSION: 1. Radial meniscal tear near the posterior root of the medial meniscus. 2. Mild osteoarthritis in the medial compartment with moderate grade chondral m alacia along the anterior weightbearing medial femoral condyle and at the jha lofemoral compartment with small region of high-grade patellar chondromalacia. 2. Likely reactive small right knee joint effusion.
--- OUTSIDE RECORDS SUMMARY | 2025-04-03 07:50 | XMS_ITS | Clinical Summary ---
Author Organization [facility] Address [address] [place] [id number] Care Team Providers Care Translator Interpreter Name Role Phone Edson Hernandes MD Primary Care Provider [phone] Encounters Date Type Department Care Team Description 03/22/2025 6:46 AM SECURITIES UNDERWRITER - 03/22/2025 11:59 PM SECURITIES UNDERWRITER Hospital Encounter [facility] [address] [place] [address] Geovani Hoffmann MD Discharge Disposition: Home or Self Care (Routine Discharge) 03/22/2025 Travel from Last 3 Months Family History Medical History Relation Comments Breast Cancer Maternal Aunt Breast Cancer Paternal Grandmother Relation Status Comments Maternal Aunt Paternal Grandmother Social History Tobacco Use Types Packs/Day Years Used Date Smoking Tobacco: Never Assessed Comments Unknown Sex and Gender Information Value Date Recorded Sex Assigned at Female 03/17/2025 8:25 AM SECURITIES UNDERWRITER Legal Sex Female 6:36 PM SECURITIES UNDERWRITER Gender Identity Not on file Sexual Orientation Not on file Plan of Treatment Health Maintenance Due Date Last Done Comments Colorectal Cancer Screening Colonoscopy (10 Years) 1974 Annual Physical 1977 Hepatitis C 1992 Hepatitis B Vaccines (1 of 3 - 19+ 3-dose series) 1993 Zoster Vaccines (1 of 2) 2024 COVID-19 Vaccine ( - 2024-2 6 season) 2024 03/18/2022, 09/07/2020, 08/17/2020 Influenza Adult (#1) 2025 12/31/2023, 01/24/2022 Cervical Cancer Screening Pa p Smear (Age 30 to 64) Every 3 Years 09/14/2025 09/14/2022 Mammogram Screening 03/22/2027 03/22/2025, 10/12/2022, 06/28/2021 Cervical Cancer Screening Pa p with HPV Testing (Age 30 to 64) Every 5 Years 09/15/2027 09/14/2022 Cervical Cancer Screening wi th HPV 09/15/2027 DTaP, Tdap and Td Vaccines ( 3 - Td or Tdap) 12/23/2030 12/23/2020, 08/17/2016 Pneumococcal Vaccine: 50+ Years Completed 08/14/2022, 07/16/2017, 08/17/2016 Hepatitis A Vaccines Aged Out No long er eligible based on patient's age to complete this topic Meningococcal B Vaccine Aged Out No l [...] MG SCREENING W NOA SCHUYLER DIGI Routine 03/22/2025 7:23 AM SECURITIES UNDERWRITER Visit for screening mammogram HUMAN PAPILLOMAVIRUS, HIGH-RISK TYPES Routine 09/14/2022 12:00 PM CDT CYTOPATH CERV/VAG THIN LAYER Routine 09/14/2022 7:48 AM CDT Screening for cervical cancer from Last 3 Months or Most Recently Relevant to Health Maintenance Results * MG SCREENING W NOA SCHUYLER DIGI (03/22/2025 7:23 AM SECURITIES UNDERWRITER) Anatomical Region Laterality Modality Breast Bilateral Mammography 03/23/2025 10:3 2 AM SECURITIES UNDERWRITER Impressions 03/23/2025 10:33 AM SECURITIES UNDERWRITER IMPRESSION: No suspicious change since the previous exams. Recommendation: 1: Routine Screening Bilateral in 1 Year Assessment: ACR BI-RADS 2 - BENIGN FINDING(S) Ordered By: GEOVANI HOFFMANN Interpreted By: Corbin Chau MD, 03/23/2025 10:32 AM Narrative 03/23/2025 10:33 AM SECURITIES UNDERWRITER [address] [place] [address] Examination: Digital screening mammogram with CAD. Clinical history: Asymptomatic patient presents for routine screening. Comparison: 10/12/2022, 06/28/2021, 01/28/2017, 11/18/2013. Technique: Bilateral digital mammograms. The exam was interpreted with the use of a computer-aided detection (CAD) system. Additional 3-D tomosynthesis images were acquired. Tissue density: There are scattered areas of fibroglandular density. Findings: The breast tissue contains scattered fibroglandular densities. Benign-appearing calcification noted. No suspicious mass, microcalcification or area of architectural distortion can be identified. From a mammographic standpoint, routine followup in one year would seem adequate. us Geovani Hoffmann MD MAMMO Final Result * HUMAN PAPILLOMAVIRUS, HIGH-RISK TYPES (09/14/2022 12:00 PM CDT) SPEC DESCRIPTION CERVICAL/END OCERVICAL 09/18/2022 7:58 AM CDT [facility] HPV DNA HIGH RISK NEGATIVE NEGATIVE 09/21/2022 9:52 PM CDT [facility] Comment:SEE CYTOLOGY REPORT 09/14/2022 12:0 0 PM CDT us Geovani Hoffmann MD PATHOLOGY/CYTOLOGY ORDERABLES Final Result [facility] [address] [place] [id number], * Cytopath Cerv/Vag Thin Layer (09/14/2022 7:48 AM CDT) THIN PREP PAP [address] [address] Department of Pathology Pathology Report CERVICAL/VAGINAL PAP SMEAR REPORT Name: PARADISE BISWAS Age: 3 1975 (Age: 47) Location: [facility] Sex: F Collected Date: 09/14/2022 [facility] #: [id number] Date Received: 09/18/2022 Date Reported: 09/24/2022 Provider: [...] is not effective in detecting cervical adenocarcinoma. [facility] 09/14/2022 7:48 AM CDT 09/18/2022 7:48 AM CDT Comment:CERVICAL/ENDOCERVICA L us Geovani Hoffmann MD PATHOLOGY/CYTOLOGY ORDERABLES Final Result [facility] [address] [place] [address] [place] [address], from Last 3 Months or Most Recently Relevant to Health Maintenance Insurance [facility] Care Teams Translator Interpreter Relationship Specialty Start Date End Date Edson Hernandes MD [address] [place] [address] PCP - General INTERNAL MEDICINE 06/23/21
--- OUTSIDE RECORDS SUMMARY | 2025-04-03 07:50 | XMS_ITS | Clinical Summary ---
Author Organization [facility] Address [address] [place] [address] Care Team Providers Care Methods Analyst Name Role Phone Edson Olivier MD Primary Care Provider [phone] Benson Delgado MD Unavailable [phone] Allergies Active Allergy Reactions Criticality Noted Date [...] water after use. Do not swallow. Active [id number] 600 mg calcium- 800 unit-50 mg tablet [...] (01/30/2022): Added automatically from request for surgery [id number] Tinnitus of both ears 11/09/2021 Assessment & [...] 11/08/2021 Assessment & Plan (03/31/2022 2:00 PM SECURITY PATROL DRIVER): She is healing well. Packing was removed [...] is a risk of orbital injury and PLUG GROWER injury which could result in blindness or [...] a steroid pack. Follow- up after that. Encounters Date Type Department Care Team Description 03/10/2025 11:20 AM SECURITY PATROL DRIVER Office Visit [facility] Medicine Surgery [address] [place] [address] [place] [id number] Jayson Dominguez MD Eyelid lesion (Primary Dx) from Last 3 Months Surgical History Surgery Date Site/Laterality Comments TONSILLECTOMY [...] Comments Blood Pressure 143/96 03/26/2022 2:05 PM SECURITY PATROL DRIVER Pulse 71 03/26/2022 2:05 PM SECURITY PATROL DRIVER Temperature 36.4 C (97.5 F) 03/26/2022 1:35 PM SECURITY PATROL DRIVER Respiratory Rate 18 03/27/2022 11:16 AM SECURITY PATROL DRIVER Oxygen Saturation 96% 03/26/2022 2:05 PM SECURITY PATROL DRIVER Inhaled Oxygen Concentration - - Weight 93.9 kg (207 lb) 03/27/2022 11:16 AM SECURITY PATROL DRIVER Height 157.5 cm (5' 2) 03/27/2022 11:16 AM SECURITY PATROL DRIVER Body Mass Index 37.86 03/27/2022 11:16 AM SECURITY PATROL DRIVER Plan of Treatment Health Maintenance Due Date Last Done Comments Colon Cancer Screening-Colonoscopy 1974 Depression Screening 1974 Hepatitis C Screening 1974 Hepatitis B Screening 1992 Regular Well Visit/Exam 18-64 1992 Cervical Cancer Screening 09/15/2023 09/14/2022 Breast Cancer Screening-Mammogram 10/13/2023 10/12/2022, 10/12/2022, 06/28/2021 Pneumococcal vaccine <65 (3 of 3 - PCV20 or PCV21) 2024 07/16/2017, 08/17/2016 Zoster Vaccine (1 of 2) 2024 Covid-19 Vaccine (3 - season) 2024, 08/17/2020 Influenza Vaccine (#1) 2024 12/31/2023, 2021 DTaP/Tdap/Td Vaccine (3 - Td or Tdap) 12/23/203001/2021, 08/17/2016 Insurance [employer] OOS BLUE ACCESS OOS Advance Directives For more information, please contact: [phone] * Full Code (Latest Code Status on File) Date Activated Date Inactivated Comments 03/26/2022 2:00 PM 03/26/2022 6:48 PM Care Teams Methods Analyst Relationship Specialty Start Date End Date Edson Olivier MD [address] [place] [address] PCP - General Internal Medicine 10/25/21 Benson Delgado MD [address] [place] [address] Consulting Physician Otolaryngology 03/26/22
== END 2025-04-03 07:47 | disposition home or self-care (01) ==
LOC: CHSIMG 07:47
PROVIDERS: PCP Internal Medicine; Visit Provider Internal Medicine
DX: S83.241A Other tear of medial meniscus, current injury, right knee, initial encounter (principal); M94.261 Chondromalacia, right knee; M67.863 Other specified disorders of tendon, right knee; M17.11 Unilateral primary osteoarthritis, right knee; M25.461 Effusion, right knee
CPT/HCPCS: 73723; A9577